=== PATIENT | female | born 1975 | race Caucasian/White ===

== ENCOUNTER → 2017-11-05 | Outpatient (CLI) | payer BC ==
[2017-11-05 08:57] LABS: Basophils % (A) 1 %; Eosinophils # (A) 0.1 k/uL (0-0.7); Eosinophils % (A) 2 %; HCT 36.6 % (34.0-46.0); HGB 11.8 gm/dL (11.4-16.0); Lymphocytes # (A) 2.1 k/uL (1.0-4.8); Lymphocytes % (A) 44 %; MCH 31.2 pg (25.0-35.0); MCHC 32.4 g/dL (31.0-37.0); MCV 96.4 fL (80.0-100.0); Mean Platelet Volume 7.9; Monocytes # (A) 0.3 k/uL (0-1.0); Monocytes % (A) 7 %; Neutrophils # (A) 2.1 k/uL (1.3-7.7); Neutrophils % (A) 45 %; Platelet Count 301 k/uL (150-450); RBC 3.79 m/uL (3.80-5.40); RDW 11.8 % (11.5-15.5); WBC 4.8 k/uL (3.8-10.6)
[2017-11-05 09:12] LABS: ALT 21 U/L (9-52); AST 23 U/L (14-36); Albumin 4.3 g/dL (3.5-5.0); Alkaline Phosphatase 49 U/L (38-126); Anion Gap 10 mmol/L; Blood Urea Nitrogen 15 mg/dL (7-17); Calcium 9.1 mg/dL (8.4-10.2); Carbon Dioxide 27 mmol/L (22-30); Chloride 105 mmol/L (98-107); Cholesterol 168 mg/dL (<200); Glucose 92 mg/dL (74-99); HDL Cholesterol 66 mg/dL (40-60); LDL Cholesterol,Calculated 94 mg/dL (0-99); Potassium 4.7 mmol/L (3.5-5.1); Sodium 142 mmol/L (137-145); Total Bilirubin 0.7 mg/dL (0.2-1.3); Total Protein 7.3 g/dL (6.3-8.2); Triglycerides 39 mg/dL (<150)
== END | disposition home or self-care (01) ==
LOC: LABWHC1 08:24
PROVIDERS: ATTEND Family Medicine
DX: Z00.00 Encounter for general adult medical examination without abnormal findings (principal)
CPT/HCPCS: 36415; 80053; 80061; 85025

== ENCOUNTER → 2018-12-18 | Outpatient (CLI) | payer BC ==
[2018-12-18 10:02] LABS: Basophils % (A) 1 %; Eosinophils # (A) 0.1 k/uL (0-0.7); Eosinophils % (A) 3 %; HCT 38.3 % (34.0-46.0); HGB 12.7 gm/dL (11.4-16.0); Lymphocytes # (A) 1.6 k/uL (1.0-4.8); Lymphocytes % (A) 34 %; MCH 31.9 pg (25.0-35.0); MCHC 33.1 g/dL (31.0-37.0); MCV 96.3 fL (80.0-100.0); Monocytes # (A) 0.4 k/uL (0-1.0); Monocytes % (A) 7 %; Neutrophils # (A) 2.4 k/uL (1.3-7.7); Neutrophils % (A) 52 %; Platelet Count 239 k/uL (150-450); RBC 3.98 m/uL (3.80-5.40); RDW 12.1 % (11.5-15.5); WBC 4.7 k/uL (3.8-10.6)
[2018-12-18 16:51] LABS: ALT 17 U/L (8-44); AST 23 U/L (13-35); Albumin/Globulin Ratio 1.96 (1.60-3.17); Alkaline Phosphatase 55 U/L (41-126); Calcium 9.4 mg/dL (8.7-10.3); Carbon Dioxide 24.6 mmol/L (21.6-31.8); Chloride 105 mmol/L (96-109); Cholesterol 130 mg/dL (0-200); Globulin 2.3 g/dL (1.6-3.3); Glucose 89 mg/dL (70-110); Potassium 3.9 mmol/L (3.5-5.5); Sodium 139 mmol/L (135-145); Total Bilirubin 0.5 mg/dL (0.2-1.2); Total Protein 6.8 g/dL (6.2-8.2); Triglycerides <50.0 mg/dL (0.0-149.0); VLDL Calculation 9.98 mg/dL (5.00-40.00)
== END | disposition home or self-care (01) ==
LOC: LABWHC1 09:00
PROVIDERS: ATTEND Family Medicine
DX: Z00.00 Encounter for general adult medical examination without abnormal findings (principal)
CPT/HCPCS: 36415; 80053; 80061; 85025

== ENCOUNTER → 2019-01-05 | Outpatient (CLI) | payer BC ==
--- NOTE | 2019-01-05 15:05 | US ---
EXAMINATION TYPE: US thyroid st tissue head/neck DATE OF EXAM: 01/05/2019 COMPARISON: NONE CLINICAL HISTORY: E07.9 L SIDED THYROID FULLNESS. GLAND SIZE: Right Lobe: 5.1 x 1.4 x 1.6 cm Overall Parenchyma: Homogeneous Left Lobe: 4.9 x 1.1 x 1.6 cm Overall Parenchyma: homogeneous Isthmus Thickness: 0.3 cm NODULES RIGHT: # of nodules measured on right: 1 1. 0.5 X 0.4 x 0.4 cm hypoechoic solid nodule at the upper mid pole with well-defined margins. Thi s nodule is wider than tall and shows intranodular vascularity. LEFT: # of nodules measured on left: 0 ISTHMUS: # of nodules measured in the isthmus: 0 Bilateral neck scanned, no evidence of lymphadenopathy. IMPRESSION: Solitary subcentimeter right thyroid nodule, otherwise homogeneous thyroid gland.
== END | disposition home or self-care (01) ==
LOC: RADUSWWP 14:15
PROVIDERS: ATTEND Family Medicine
DX: E04.1 Nontoxic single thyroid nodule (principal)
CPT/HCPCS: 76536

== ENCOUNTER → 2019-01-13 | Outpatient (CLI) | payer BC ==
--- NOTE | 2019-01-14 11:21 | NM ---
EXAMINATION TYPE: NM thyroid image w uptake DATE OF EXAM: 01/14/2019 COMPARISON: Ultrasound thyroid 01/05/2019 HISTORY: Thyroid mass TECHNIQUE: Thyroid iodine uptake is calculated and images performed after the oral administration of 304 uCi 1-123 Capsule. FINDINGS: There is normal distribution of activity throughout the gland. The 4 hour iodine uptake is calculated at 8.3% (normal range 8-14%). The 24-hour iodine uptake is calculated at 24.1% (normal ra nge 15-35%). IMPRESSION: Normal thyroid scan and uptake.
== END | disposition home or self-care (01) ==
LOC: RADNMMAIN 09:28
PROVIDERS: ATTEND Family Medicine
DX: R22.0 Localized swelling, mass and lump, head (principal)
CPT/HCPCS: 78014; A9516

== ENCOUNTER → 2019-04-24 | Outpatient (CLI) | payer BC ==
--- NOTE | 2019-04-25 08:27 | CT ---
EXAMINATION TYPE: CT soft tissue neck w con DATE OF EXAM: 04/24/2019 COMPARISON: None HISTORY: Lt neck swelling, R 22.1 CT DLP: 294.2 mGycm CONTRAST: Patient injected with 100 mL of Isovue 300. TECHNIQUE: Axial images at 3 mm thick sections. Reconstructed images in the coronal plane and sagitt al plane are reviewed. FINDINGS: Limited CT sections are obtained the lung apices. The lung apices appear clear. CT neck: The torus tubarius and fossa of Rosenmuller are normal. Sales Operations spaces are normal. Para nasal sinuses and mastoid air cells are clear. Parotid glands appear normal and symmetrical. Submandibular glands, are normal. Parapharyngeal spac es are normal. No suspicious adenopathy is evident. The hypopharynx appears within normal limits. Vocal cord level appear symmetrical. Thyroid as visualized is normal. Osseous structures are normal. At the level marked by the BB no suspicious underlying abnormality is evident. This is along the ante rior margin of the left sternocleidomastoid muscle. IMPRESSIONS: 1. Normal CT soft tissue neck.
== END | disposition home or self-care (01) ==
LOC: RADCTMAIN 09:04
PROVIDERS: ATTEND Otolaryngology
DX: R22.1 Localized swelling, mass and lump, neck (principal)
CPT/HCPCS: 70491; Q9967

== ENCOUNTER → 2020-12-21 | Outpatient (CLI) | payer BC ==
[2020-12-21 14:25] LABS: Basophils # (A) 0.05 X 10*3/uL (0.00-0.10); Eosinophils # (A) 0.11 X 10*3/uL (0.04-0.35); Eosinophils % (A) 2.1 %; HCT 35.4 % (37.2-46.3); HGB 11.2 g/dL (12.0-15.0); Lymphocytes # (A) 1.75 X 10*3/uL (0.90-5.00); Lymphocytes % (A) 33.4 %; MCH 31.8 pg (27.0-32.0); MCHC 31.6 g/dL (32.0-37.0); MCV 100.6 fL (80.0-97.0); Mean Platelet Volume 11.2 fL (9.5-12.2); Monocytes # (A) 0.49 X 10*3/uL (0.20-1.00); Monocytes % (A) 9.4 %; Neutrophils # (A) 2.83 X 10*3/uL (1.80-7.70); Neutrophils % (A) 53.9 %; Platelet Count 264 X 10*3/uL (140-440); RBC 3.52 X 10*6/uL (4.10-5.20); RDW 11.5 % (11.5-14.5); WBC 5.24 X 10*3/uL (4.50-10.00)
[2020-12-21 22:08] LABS: African American GFR (CKD) 121.3 (60.0-200.0); Albumin 4.4 g/dL (3.80-4.90); Albumin/Globulin Ratio 1.83 (1.60-3.17); Anion Gap 9.9 mmol/L (4.00-12.00); BUN/Creat Ratio 21.43 Ratio (12.00-20.00); Carbon Dioxide 21.1 mmol/L (21.6-31.8); Chol/HDL Ratio 2.71; Globulin 2.4 g/dL (1.6-3.3); LDL Cholesterol,Calculated 85.6 mg/dL (0.0-131.0); Non-African American GFR(CKD) 104.6 (60.0-200.0); Total Bilirubin 0.7 mg/dL (0.3-1.2); Total Protein 6.8 g/dL (6.2-8.2); VLDL Calculation 10.4 mg/dL (5.00-40.00)
== END | disposition home or self-care (01) ==
LOC: LABWHC1 08:20
PROVIDERS: ATTEND Family Medicine
DX: Z00.00 Encounter for general adult medical examination without abnormal findings (principal)
CPT/HCPCS: 36415; 80053; 80061; 85025

== ENCOUNTER → 2021-01-25 | Outpatient (CLI) | payer BC | END | disposition home or self-care (01) | CPT/HCPCS: 77063; 77067 ==

== ENCOUNTER → 2022-01-29 | Outpatient (CLI) | payer BC ==
[2022-01-29 10:45] LABS: HCT 36.7 % (37.2-46.3); HGB 11.7 g/dL (12.0-15.0); MCH 31.5 pg (27.0-32.0); MCHC 31.9 g/dL (32.0-37.0); MCV 98.7 fL (80.0-97.0); Mean Platelet Volume 10.9 fL (9.5-12.2); NRBC Per 100 WBC 0 /100 WBCS (0.0-0.0); Platelet Count 270 X 10*3/uL (140-440); RBC 3.72 X 10*6/uL (4.10-5.20); RDW 11.5 % (11.5-14.5)
[2022-01-29 11:09] LABS: African American GFR (CKD) 120.4 (60.0-200.0); Albumin 4.6 g/dL (3.8-4.9); BUN/Creat Ratio 23.14 Ratio (12.00-20.00); Blood Urea Nitrogen 16.2 mg/dL (9.0-27.0); Calcium 9.1 mg/dL (8.7-10.3); Globulin 2.3 g/dL (1.6-3.3); HDL Cholesterol 69.2 mg/dL (40.00-60.00); Non-African American GFR(CKD) 103.9 (60.0-200.0); Potassium 5.1 mmol/L (3.5-5.5); Total Bilirubin 0.6 mg/dL (0.30-1.20); Total Protein 6.9 g/dL (6.2-8.2); Triglycerides 31.3 mg/dL (0.00-149.00)
[2022-01-29 11:22] LABS: Chol/HDL Ratio 2.23 Ratio; LDL Cholesterol,Direct Reflex 79.1 mg/dL (0.00-129.00)
--- NOTE | 2022-01-30 08:25 | MM ---
Reason for Exam: Screening (asymptomatic). Last screening mammogram was performed 12 month(s) ago. Patient History: Menarche at age 13. First Full-Term at age 39. Late child-bearing (after 30). Patient used Hormonal Contraceptives for 10 years. Last menstrual period: 01/22/2022 Risk Values: Samantha 5 year model risk: 1.2%. NCI Lifetime model risk: 12.8%. Prior Study Comparison: 10/16/2017 Screening Mammogram, [facility]. 12/04/2018 Screening Mammogram, [facility]. 01/25/2021 Bilateral Screening Mammogram, [facility]. Tissue Density: The breast tissue is heterogeneously dense. This may lower the sensitivity of mammography. Findings: Analyzed By CAD. There is occasional scattered benign-appearing round calcification bilaterally. There is no suspicious group of microcalcifications or new suspicious mass in either breast. Overall Assessment: Benign, BI-RAD 2 Management: Screening Mammogram of both breasts in 1 year. A clinical breast exam by your physician is recommended on an annual basis and results should be correlated with mammographic findings. Electronically signed and approved by: Milton Dooley M.D.
== END | disposition home or self-care (01) ==
LOC: RADMAMWWP 08:21
PROVIDERS: ATTEND Family Medicine
DX: Z12.31 Encounter for screening mammogram for malignant neoplasm of breast (principal); R92.1 Mammographic calcification found on diagnostic imaging of breast
CPT/HCPCS: 77063; 77067; 80053; 80061; 83721; 85027

== ENCOUNTER → 2023-02-19 | Outpatient (CLI) | payer BC ==
--- NOTE | 2023-02-19 14:26 | MM ---
Reason for Exam: Screening (asymptomatic). Last screening mammogram was performed 12 month(s) ago. Patient History: Menarche at age 13. First Full-Term at age 39. Late child-bearing (after 30). Premenopausal. Patient used Hormonal Contraceptives for 10 years. Last menstrual period: 01/23/2023 Risk Values: Samantha 5 year model risk: 1.2%. NCI Lifetime model risk: 12.7%. Prior Study Comparison: 12/04/2018 Screening Mammogram, [facility]. 01/25/2021 Bilateral Screening Mammogram, [facility]. 01/29/2022 Bilateral MG 3D screening mammo w/cad, [facility]. Tissue Density: The breast tissue is heterogeneously dense. This may lower the sensitivity of mammography. Findings: Analyzed By CAD. There is no suspicious group of microcalcifications or new suspicious mass in either breast. Overall Assessment: Negative, BI-RAD 1 Management: Screening Mammogram of both breasts in [address] [facility] will attempt to contact patient to return for supplemental views and ultrasound if indicated. Patient should continue monthly self-breast exams. A clinical breast exam by your physician is recommended on an annual basis. This exam should not preclude additional follow-up of suspicious palpable abnormalities. Note on Samantha scores and lifetime risk: 1. A Samantha score greater than 3% is considered moderate risk. If this is the case, consider specialist referral to assess eligibility for a risk reducing agent. 2. If overall lifetime risk for the development of breast cancer is 20% or higher, the patient may qualify for future screening with alternating mammogram and breast MRI. Electronically signed and approved by: Angel Martino DO
== END | disposition home or self-care (01) ==
LOC: RADMAMWWP 09:17
PROVIDERS: ATTEND Family Medicine
DX: Z12.31 Encounter for screening mammogram for malignant neoplasm of breast (principal)
CPT/HCPCS: 77063; 77067